=== PATIENT | female | born 1950 | race Caucasian/White ===

== ENCOUNTER 2020-10-19 06:35 | Inpatient (IN) | payer MEDICARE, OTHER ==
[~2020-10-19] VITALS: Ht 157.5 cm; Wt 45.4 kg
[2020-10-19 08:39] LABS: HEMOGLOBIN 10.8 gm/dl (12.3-15.3); WHITE BLOOD COUNT 10.6 K/UL (4.5-11.0)
[2020-10-19 09:05] LABS: BUN/CREATININE RATIO 76 (0-10)
[2020-10-19] MEDS ORDERED: OMEPRAZOLE40 MG PO (13:25)
[2020-10-19] MEDS ORDERED: LOPRESSOR 25 MG25 MG PO (13:25)
[2020-10-19] MEDS ORDERED: TRAZODONE HCL50 MG PO (13:25)
[2020-10-19] MEDS ORDERED: PERPHENAZINE2 MG PO (13:26)
[2020-10-19] MEDS ORDERED: SIMVASTATIN10 MG PO (13:26)
[2020-10-19] MEDS ORDERED: JEVITY 1.5 CA1500 ML GT (17:01)
[2020-10-19 21:31] LABS: HEMOGLOBIN 9.2 gm/dl (12.3-15.3); WHITE BLOOD COUNT 8.6 K/UL (4.5-11.0)
[2020-10-19 21:36] LABS: RED BLOOD COUNT 3.49 M/UL (4.00-5.10)
[2020-10-20 05:05] LABS: HEMOGLOBIN 8.6 gm/dl (12.3-15.3); RED BLOOD COUNT 3.34 M/UL (4.00-5.10); WHITE BLOOD COUNT 7.5 K/UL (4.5-11.0)
[2020-10-20 05:30] LABS: BUN/CREATININE RATIO 60 (0-10)
--- NOTE | 2020-10-20 06:09 | NUR ---
ATTEMPTED TO CALL [employer] TO RECIEVE CONSENT FOR EGD THIS AM, BUT RECIEVED NO ANSWER. I LEFT A MESSAGE ON THE ANSWERING MACHINE. WAITING FOR A CALL BACK. WILL CONTINUE TO TRY TO REACH GUARDIAN.
[2020-10-21 04:33] LABS: HEMOGLOBIN 7.9 gm/dl (12.3-15.3)
[2020-10-21 04:39] LABS: RED BLOOD COUNT 2.91 M/UL (4.00-5.10); WHITE BLOOD COUNT 4.6 K/UL (4.5-11.0)
[2020-10-21 04:49] LABS: BUN/CREATININE RATIO 57 (0-10)
[2020-10-21 20:01] LABS: HEMOGLOBIN 7.5 gm/dl (12.3-15.3)
[2020-10-22 04:48] LABS: HEMOGLOBIN 7.2 gm/dl (12.3-15.3); RED BLOOD COUNT 2.83 M/UL (4.00-5.10); WHITE BLOOD COUNT 3.8 K/UL (4.5-11.0)
[2020-10-22 05:00] LABS: BUN/CREATININE RATIO 46 (0-10)
[2020-10-22] MEDS ORDERED: SUCRALFATE1 GM/10 ML PO (12:59)
[2020-10-22] MEDS ORDERED: FERROUS SU220 MG/5 M PO (13:01)
[2020-10-22 20:12] LABS: RED BLOOD COUNT 4.79 M/UL (4.00-5.10)
[2020-10-22 20:13] LABS: HEMOGLOBIN 13.4 gm/dl (12.3-15.3)
== END 2020-10-23 10:12 | DRG 368 ==
LOC: ER1 06:35 → CDU 13:20 → MED SURG 4 13:20
PROVIDERS: Emergency Medicine; Physician Assistant Medical; ADMIT Family Medicine
PROC: 05HM33Z Insertion of Infusion Device into Right Internal Jugular Vein, Percutaneous Approach (ICD-10-PCS; principal; 2020-10-19)
PROC: B543ZZA Ultrasonography of Right Jugular Veins, Guidance (ICD-10-PCS; 2020-10-19)
PROC: 0DJ08ZZ Inspection of Upper Intestinal Tract, Via Natural or Artificial Opening Endoscopic (ICD-10-PCS; 2020-10-20)
PROC: 30233N1 Transfusion of Nonautologous Red Blood Cells into Peripheral Vein, Percutaneous Approach (ICD-10-PCS; 2020-10-22)
DX: K21.01 Gastro-esophageal reflux disease with esophagitis, with bleeding (principal); J15.6 Pneumonia due to other Gram-negative bacteria; R53.2 Functional quadriplegia; D62 Acute posthemorrhagic anemia; I47.1 Supraventricular tachycardia; Z20.828 Contact with and (suspected) exposure to other viral communicable diseases; K44.9 Diaphragmatic hernia without obstruction or gangrene; Y95 Nosocomial condition; G93.89 Other specified disorders of brain; E78.5 Hyperlipidemia, unspecified; F03.90 Unspecified dementia, unspecified severity, without behavioral disturbance, psychotic disturbance, mood disturbance, and anxiety; R13.10 Dysphagia, unspecified; M81.0 Age-related osteoporosis without current pathological fracture; E55.9 Vitamin D deficiency, unspecified; Z88.0 Allergy status to penicillin; Z87.820 Personal history of traumatic brain injury; Z88.8 Allergy status to other drugs, medicaments and biological substances; Z87.81 Personal history of (healed) traumatic fracture; Z79.899 Other long term (current) drug therapy
CPT/HCPCS: 36415; 36430; 51702; 70450; 71045; 80048; 80053; 81001; 82607; 82746; 82962; 83010; 83540; 83550; 83615; 83690; 83735; 84439; 84443; 84484; 85014; 85018; 85025; 85027; 85045; 85610; 85730; 86140; 86850; 86900; 86901; 86920; 93005; 96365; 96366; 96367; 96375; 96376; 99285; C1751; C9113; J0456; J0696; J1335; J2250; J2354; J2405; J7030; J7040; P9016; Q9967; U0002